=== PATIENT | female | born 1950 | race Caucasian/White ===

== ENCOUNTER 2017-01-12 12:05 | Outpatient (CLI) | payer OTHER | END 2017-01-12 12:06 | disposition home or self-care (01) | DX: Z12.31 Encounter for screening mammogram for malignant neoplasm of breast (principal) ==

== ENCOUNTER 2017-01-12 13:37 | Outpatient (CLI) | payer OTHER | END 2017-01-12 13:38 | disposition home or self-care (01) | DX: R05 Cough (principal) ==

== ENCOUNTER 2017-08-05 11:19 | Emergency (ER) | payer OTHER ==
[2017-08-05 11:53] LABS: BASOPHILS # (AUTO) 0.1 10^3/uL (0.0-0.1); BASOPHILS % (AUTO) 1.4 %; EOSINOPHILS # (AUTO) 0.2 10^3/uL (0.0-0.7); EOSINOPHILS % (AUTO) 3.2 %; HCT - HEMATOCRIT 43.5 % (37.0-47.0); HGB - HEMOGLOBIN 15.1 g/dL (12.0-16.0); LYMPHOCYTES # (AUTO) 2.8 10^3/uL (1.5-3.5); LYMPHOCYTES % (AUTO) 40.3 %; MEAN CORPUSCULAR HEMOGLOBIN 31.4 pg (27.0-31.0); MEAN CORPUSCULAR HGB CONC 34.6 g/dL (32.0-36.0); MEAN CORPUSCULAR VOLUME 90.6 fL (81.0-99.0); MEAN PLATELET VOLUME 7.4 fL (7.9-10.8); MONOCYTES # (AUTO) 0.5 10^3/uL (0.0-1.0); MONOCYTES % (AUTO) 7.5 %; NEUTROPHILS # (AUTO) 3.4 10^3/uL (1.5-6.6); NEUTROPHILS % (AUTO) 47.6 %; NUCLEATED RED BLOOD CELLS AUTO 0.1 /100WBC; RED CELL DISTRIBUTION WIDTH 13.2 % (12.0-15.0); UNCORRECTED WHITE BLOOD COUNT 7.1 x10^3/uL; WHITE BLOOD COUNT 7.1 x10^3/uL (4.8-10.8)
[2017-08-05 12:07] LABS: ALBUMIN/GLOBULIN RATIO 1.4 (1.0-2.2); BILIRUBIN,TOTAL 1.7 mg/dL (0.2-1.0); CALCIUM 9.9 mg/dL (8.5-10.3); CREATININE 0.7 mg/dL (0.4-1.0); POTASSIUM 3.8 mmol/L (3.5-5.0); TOTAL PROTEIN 7.4 g/dL (6.7-8.2)
--- NOTE | 2017-08-05 12:33 | XRAY Preliminary Report ---
Exam: XR CHEST 1 VIEW IMPRESSION: Grossly clear lungs. [facility] SITE ID: [id number]
--- NOTE | 2017-08-05 12:36 | XRAY Report ---
EXAM: CHEST RADIOGRAPHY EXAM DATE: 08/05/2017 11:49 AM. CLINICAL HISTORY: Chest pain. COMPARISON: 01/12/2017. TECHNIQUE: 1 view. FINDINGS: Lungs/Pleura: No focal opacities evident. No enlarged pleural effusion. No pneumothorax. Mediastinum: Within exam limitations, the cardiomediastinal contour is normal. Other: None. IMPRESSION: Grossly clear lungs. [facility] Referring Provider Line: [phone] SITE ID: [id number]
[2017-08-05 13:06] VITALS: BP 111/65
--- NOTE | 2017-08-05 13:26 | ED Physician Documentation ---
History of Present Illness - Stated complaint Stated Complaint: ELEVATED HEART RATE - Chief complaint Chief Complaint: Cardiac - History obtained from History obtained from: Patient (pt is here for evaluation of palpitations. pt states that she has had palpitations in the past but over the past week she has noticed them more. no chest pain, no shortness of breath, no dizziness, no headache, no passing out.) Review of Systems Constitutional: denies: Fever, Chills, Fatigue Nose: denies: Congestion, Sinus pressure / pain Throat: denies: Sore throat Cardiac: reports: Palpitations. denies: Chest pain / pressure, Pedal edema, Calf pain Respiratory: denies: Dyspnea, Cough, Hemoptysis GI: denies: Abdominal Pain, Nausea, Vomiting, Constipation, Diarrhea : denies: Dysuria, Frequency Skin: denies: Rash, Lesions Musculoskeletal: denies: Neck pain, Back pain, Joint swelling Neurologic: denies: Generalized weakness, Numbness, Difficulty speaking, Confused, Altered mental status, Headache, LOC PD PAST MEDICAL HISTORY - Past Medical History Past Medical History: Yes GI: GERD - Past Surgical History Past Surgical History: Yes Derm: Skin cancer surgery - Present Medications Home Medications: Ambulatory Orders Medication Instructions Recorded Confirmed Acyclovir 400 mg PO 08/05/17 Cetirizine [ZyrTEC] 10 mg PO DAILY 08/05/17 08/05/17 Docusate Sodium 250Mg Capsule 08/05/17 08/05/17 [Colace 250Mg Capsule] Melatonin 1 mg PO 08/05/17 raNITIdine [Zantac] 08/05/17 - Allergies Allergies/Adverse Reactions: Allergies Allergy/AdvReac Type Severity Reaction Status Date / Time latex Allergy Respiratory Verified 08/05/17 11:28 - Social History Does the pt smoke?: No Smoking Status: Never smoker Does the pt drink ETOH?: Yes ETOH Use: Wine Does the pt have substance abuse?: No - Immunizations Immunizations are current?: Yes - POLST Patient has POLST: No PD ED PE NORMAL - Vitals Vital signs reviewed: Yes - General General: Alert and oriented X 3, No acute distress, Well developed/nourished - HEENT HEENT: Atraumatic, Moist mucous membranes - Cardiac Cardiac: No murmur, No gallop, No rub. No: RRR (pt regular irregular) - Respiratory Respiratory: No respiratory distress, Clear bilaterally - Abdomen Abdomen: Normal bowel sounds, Soft, Non tender - Derm Derm: Normal color, Warm and dry, No rash - Extremities Extremities: No deformity, No edema - Neuro Neuro: Alert and oriented X 3, Normal speech Eye Opening: Spontaneous Motor: Obeys Commands Verbal: Oriented GCS Score: 15 - Psych Psych: Normal mood, Normal affect Results - Vitals Vitals: Vital Signs - 24 hr 08/05/17 08/05/17 08/05/17 11:28 11:46 13:05 Temperature 37.2 C Heart Rate 82 81 76 Respiratory 20 18 22 Rate Blood Pressure 141/83 H 144/67 H 111/65 Blood Pressure 147/109 H [Right] O2 Saturation 100 97 96 Oxygen O2 Source Room air - EKG (time done) 1129 Rate: Rate (enter#) Rhythm: NSR, Other (atrial trigeminy) [place]: Normal Ischemia: Normal ST segments Other comments: Other comments (pt with PAC's every 3rd beat ) - Labs Labs: Laboratory Tests 08/05/17 08/05/17 08/05/17 11:35 11:35 11:35 WBC 7.1 RBC 4.80 Hgb 15.1 Hct 43.5 MCV 90.6 MCH 31.4 H MCHC 34.6 RDW 13.2 Plt Count 329 MPV 7.4 L Neut # 3.4 Lymph # 2.8 [place] # 0.5 Eos # 0.2 Baso # 0.1 Absolute Nucleated RBC 0.01 Nucleated RBC % 0.1 Sodium 139 Potassium 3.8 Chloride 103 Carbon Dioxide 25 Anion Gap 11.0 BUN 15 Creatinine 0.7 Estimated GFR (MDRD) 84 L Glucose 96 Calcium 9.9 Total Bilirubin 1.7 H AST 20 ALT 17 Alkaline Phosphatase 42 Troponin I < 0.04 Total Protein 7.4 Albumin 4.3 Globulin 3.1 Albumin/Globulin Ratio 1.4 Lipase 21 L - Rads (name of study) CXR Radiology: Final report received PD MEDICAL DECISION MAKING - ED course Complexity details: d/w patient ED course: pt with frequent PAC's (trigeminy). CXR and labs unremarkable. pt is asymptomatic except for the sensation of the palpitations. We discussed this diagnosis. She as a folow up with her PCM tomorrow already scheduled. pt was given a copy of her ECG to take to her PCM. We discussed return precautions. She and her expressed understanding. Departure - Departure Disposition: 01 Home, Self Care Clinical Impression: Heart palpitations, Atrial complex, premature Condition: Good Instructions: Heart Palpitations Follow-Up: Sallie Lunsford MD [Primary Care Provider] - Comments: You are having premature trial contractions. keep your appointment with your primary care provider tomorrow and show your primary care provider the ECG that you had done today. Return to the ER for any new symptoms, chest pain, shortness of breath, dizziness or any other new or worsening symptoms.
== END 2017-08-05 13:53 | disposition home or self-care (01) ==
LOC: ED 11:19
DX: R00.2 Palpitations (principal); I49.1 Atrial premature depolarization
CPT/HCPCS: 71010; 80053; 83690; 84484; 85025; 93005; 99284

== ENCOUNTER 2018-06-14 15:55 | Outpatient (CLI) | payer OTHER ==
--- NOTE | 2018-06-17 08:37 | Mammography Report ---
Reason: SCREENING MAMMO Procedure Date: 06/14/2018 Accession Number: [id number] / [id number] Procedure: TIFFANY - Screening Mammo Dig Bilat CPT Code: FULL RESULT: EXAM: Screening Mammo Dig Bilat DATE: 06/14/2018 4:10 PM CLINICAL HISTORY: 68-year-old female with history of endometrial cancer as well as bilateral lumpectomy with benign pathology results. TECHNIQUE: Bilateral CC and MLO views were obtained. COMPARISON: 01/12/2017, 08/25/2015, 05/18/2014, 01/17/2013. FINDINGS: The breasts demonstrate scattered fibroglandular densities bilaterally. There is a developing asymmetry in the posterior upper left breast seen on the MLO view only which requires additional spot magnification view, ideally mammography and possibly ultrasound imaging for clarification. No other suspicious masses, clustered microcalcifications, or regions of architectural distortion are identified. IMPRESSION: Incomplete examination RECOMMENDATION: Additional evaluation as above. BIRADS CATEGORY 0: Incomplete examination STANDARD QUALIFYING STATEMENTS: 1. This examination was not reviewed with the aid of Computer-Aided Detection (CAD). 2. A negative or benign imaging report should not delay biopsy if clinically suspicious findings are present. Consider surgical consultation if warrented. More than 5% of cancers are not identified by imaging. 3. Dense breasts may obscure an underlying neoplasm. 4. This examination was reviewed without the aid of 3D breast imaging (tomosynthesis).
== END 2018-06-14 15:56 | disposition home or self-care (01) ==
LOC: DI 15:55
PROVIDERS: ATTEND Internal Medicine
DX: Z12.31 Encounter for screening mammogram for malignant neoplasm of breast (principal); Z85.89 Personal history of malignant neoplasm of other organs and systems
CPT/HCPCS: 77067

== ENCOUNTER 2018-07-05 14:04 | Outpatient (CLI) | payer OTHER ==
--- NOTE | 2018-07-05 15:41 | Mammography Report ---
Reason: ABN MAMMO - LEFT SPEC VIEWS Procedure Date: 07/05/2018 Accession Number: [id number] / [id number] Procedure: TIFFANY - Diag Special Views Dig LT CPT Code: FULL RESULT: EXAM: Diag Special Views Dig LT DATE: 07/05/2018 2:43 PM CLINICAL HISTORY: Follow-up abnormal mammogram 06/14/2018 TECHNIQUE: Left MLO spot compression, and left MLO and true lateral views with tomography. COMPARISON: 06/14/2018 FINDINGS: The density previously described in the posterior superior left breast on the MLO projection does not persist on additional views. IMPRESSION: Negative examination. RECOMMENDATION: Return to routine screening in 12 months. BIRADS CATEGORY: 1 Negative STANDARD QUALIFYING STATEMENTS: 1. This examination was reviewed with the aid of Computer-Aided Detection (CAD). 2. A negative or benign imaging report should not delay biopsy if clinically suspicious findings are present. Consider surgical consultation if warrented. More than 5% of cancers are not identified by imaging. 3. Dense breasts may obscure an underlying neoplasm.
== END 2018-07-05 14:05 | disposition home or self-care (01) ==
LOC: DI 14:04
PROVIDERS: ATTEND Internal Medicine
DX: R92.8 Other abnormal and inconclusive findings on diagnostic imaging of breast (principal)

== ENCOUNTER 2018-12-30 11:31 | Outpatient (CLI) | payer OTHER ==
--- NOTE | 2018-12-30 12:46 | XRAY Report ---
Reason: COUGH Procedure Date: 12/30/2018 Accession Number: [id number] / [id number] Procedure: XR - Chest 2 View X-Ray CPT Code: 16660 FULL RESULT: EXAM: CHEST RADIOGRAPHY EXAM DATE: 12/30/2018 11:54 AM. CLINICAL HISTORY: Cough for 6 days with low grade fever. COMPARISON: CHEST 1 VIEW 08/05/2017 11:48 AM. TECHNIQUE: 2 views. FINDINGS: Lungs/Pleura: No focal opacities evident. No pleural effusion. No pneumothorax. Normal volumes. Mediastinum: Heart and mediastinal contours are unremarkable. Other: None. IMPRESSION: No radiographic evidence of airspace disease. [facility]
== END 2018-12-30 11:32 | disposition home or self-care (01) ==
LOC: DI 11:31
PROVIDERS: ATTEND Internal Medicine
DX: R05 Cough (principal)
CPT/HCPCS: 71046

== ENCOUNTER 2019-01-27 15:25 | Outpatient (CLI) | payer OTHER | END 2019-01-27 15:26 | disposition home or self-care (01) | LOC: SC 15:25 | PROVIDERS: ATTEND Internal Medicine Pulmonary Disease | DX: R06.83 Snoring (principal); Z87.891 Personal history of nicotine dependence | CPT/HCPCS: 99203; 99212 ==

== ENCOUNTER 2019-02-16 20:29 | Outpatient (CLI) | payer OTHER | END 2019-02-16 20:30 | disposition home or self-care (01) | LOC: SC 20:29 | PROVIDERS: ATTEND Internal Medicine Pulmonary Disease | DX: G47.61 Periodic limb movement disorder (principal) | CPT/HCPCS: 95810 ==

== ENCOUNTER 2019-03-25 15:14 | Outpatient (CLI) | payer OTHER ==
--- NOTE | 2019-03-25 15:51 | CONSULTATION NOTE ---
Information from patient questionnaire entered by Katherine Roche. I have reviewed and concur with the information entered by Katherine Roche. This document represents the service I personally performed and the decisions made by me, Nik Cancino MD, [facility]. - History of Present Illness returned with her for follow up of the sleep study she had on 02/16/19. The polysomnography showed that the patient had poor sleep efficiency as the patient was awake almost throughout the first half of the night. Except for mild sleep fragmentation, the sleep architecture was relatively normal. Respiratory monitoring showed no significant sleep disordered breathing (AHI = 0.3) or hypoxia (robby oxygen saturation of 90%). The patient slept adequately in supine position (supine AHI = 0.0; non-supine = 0.31). Snore was infrequent and light in intensity. There was mild periodic leg movement of sleep con tributing to the sleep fragmentation. Cardiac rhythm was normal sinus rhythm with frequent premature atrial contractions, occasionally in trigeminy. No abnormal behavior (parasomnia) observed during the night. The patient was informed of these findings. I explained to her that except for the mild periodic leg movement of sleep, the sleep study was normal. Initial Lincoln Sleepiness Scale score: 2 Current Lincoln Sleepiness Scale score: 2 - Allergies/Medications Allergies latex Allergy (Verified 08/05/17 11:28) Respiratory Home Medications Acetaminophen [Tylenol Extra Strength] 500 mg PO PRN PRN 03/17/19 [History Confirmed 03/17/19] Acyclovir 400 mg PO DAILY 03/17/19 [History Confirmed 03/17/19] Albuterol Sulfate [Albuterol Sulfate Hfa] 2 puffs IH Q4HR PRN 03/17/19 [History Confirmed 03/17/19] Beclomethasone Dipropionate [Qvar Redihaler (80 mcg)] 1 puffs IH BID 03/17/19 [History Confirmed 03/17/19] Cetirizine [ZyrTEC] 10 mg PO DAILY 03/17/19 [History Confirmed 03/17/19] Melatonin 1 mg PO QPM 03/17/19 [History Confirmed 03/17/19] raNITIdine [Zantac] 150 mg PO BID 03/17/19 [History Confirmed 03/17/19] Allergies and home medications reviewed: Yes - Review of Systems Review of systems same as previous: Yes - Impression 1. Periodic leg movement of sleep, mild and without restless leg syndrome. No treatment is necessary. The cause of periodic leg movement of sleep is typically unknown. Few known causes are iron deficiency, renal failure, and selective serotonin reuptake inhibitors. Iron and ferritin levels are recom mended in addition to the routine blood work. - Plan 1. Primary care provider to check iron and ferritin levels on her routine blood work. 2. Return to the sleep clinic on as needed basis. This visit is time-based and I spent 15 minutes with the patient, and more than 50% of the time was spent counseling the patient.
== END 2019-03-25 15:15 | disposition home or self-care (01) ==
LOC: SC 15:14
PROVIDERS: ATTEND Internal Medicine Pulmonary Disease
DX: G47.61 Periodic limb movement disorder (principal)
CPT/HCPCS: 99212; 99213

== ENCOUNTER 2019-07-23 16:35 | Outpatient (CLI) | payer OTHER ==
--- NOTE | 2019-07-25 08:25 | Mammography Report ---
Reason: ENCNTR SCREEN MAMMOGRAM FOR MALIGNANT NEOPLASM OF Procedure Date: 07/23/2019 Accession Number: [id number] / [id number] Procedure: TIFFANY - Screening Mammo w/[place] CPT Code: Final Report FULL RESULT: EXAM: Screening Mammo w/[place] DATE: 07/23/2019 5:05 PM CLINICAL HISTORY: Routine screening. No reported personal or family history of breast cancer. History of bilateral benign breast biopsies. TECHNIQUE: (B) - Bilateral CC and MLO views were obtained. COMPARISON: 07/05/2018 through 01/08/2012. PARENCHYMAL PATTERN: (A) - The breasts demonstrate scattered fibroglandular densities bilaterally. FINDINGS: Bilateral breasts: There are no suspicious masses, calcifications, or areas of distortion. IMPRESSION: Negative examination. BI-RADS category 1. RECOMMENDATION: (ANNUAL) - Recommend routine annual screening mammography. BI-RADS CATEGORY: (1) - Negative. STANDARD QUALIFYING STATEMENTS: 1. This examination was not reviewed with the aid of Computer-Aided Detection (CAD). 2. A negative or benign imaging report should not preclude biopsy if clinically suspicious findings are present. 3. Dense breasts may obscure an underlying neoplasm. 4. This examination was reviewed with the aid of 3D breast imaging (tomosynthesis).
== END 2019-07-23 16:36 | disposition home or self-care (01) ==
LOC: DI 16:35
PROVIDERS: ATTEND Internal Medicine
DX: Z12.31 Encounter for screening mammogram for malignant neoplasm of breast (principal)
CPT/HCPCS: 77063; 77067

== ENCOUNTER 2020-10-06 09:13 | Outpatient (CLI) | payer BC ==
--- NOTE | 2020-10-07 09:00 | Mammography Report ---
BILATERAL DIGITAL SCREENING MAMMOGRAM 3D/2D: 10/06/2020 CLINICAL: Routine screening. Comparison is made to exams dated: 07/23/2019 mammogram, 07/05/2018 mammogram, 06/14/2018 mammogram, 01/12/2017 mammogram, 08/25/2015 mammogram, and 05/18/2014 mammogram - [facility]. The tissue of both breasts is predominantly fatty. No significant masses, calcifications, or other findings are seen in either breast. There has been no significant interval change. IMPRESSION: NEGATIVE There is no mammographic evidence of malignancy. A 1 year screening mammogram is recommended. This exam was interpreted at Station ID: [id number]. NOTE: For mammograms, a report in lay terms will be sent to the patient. Approximately 15% of breast malignancies will not be visualized mammographically. In the management of a palpable breast mass, a negative mammogram must not discourage biopsy of a clinically suspicious lesion. Electronically Signed By: Maverick Cortez M.D., jr/iveth:10/06/2020 11:18:02 ACR BI-RADS Category 1: Negative 3341F PARENCHYMAL PATTERN: (F) - The breast(s) demonstrate(s) diffuse fatty replacement. BI-RADS CATEGORY: (1) - 1 RECOMMENDATION: (ANNUAL) - Recommend routine annual screening mammography. [id number] 1 year screening LATERALITY: (B)
== END 2020-10-06 09:14 | disposition home or self-care (01) ==
LOC: DI.N 09:13
DX: Z12.31 Encounter for screening mammogram for malignant neoplasm of breast (principal)

== ENCOUNTER 2021-08-11 14:55 | Outpatient (CLI) | payer MEDICARE, OTHER ==
--- NOTE | 2021-08-11 16:06 | Ultrasound Report ---
PROCEDURE: Ext Limited Non Vascular INDICATIONS: RT UPPER ARM LUMP TECHNIQUE: Real-time scanning was performed of the right upper extremity, with image documentation. COMPARISON: None. FINDINGS: In the area of pain and fullness, no discrete sonographic abnormality identified. No focal mass or fluid collection is seen. No sonographic evidence of cellulitis. There is symmetric appearan ce sonographically to the left upper arm. IMPRESSION: Negative examination as above. If the patient's pain or other symptoms persist, consider further evaluation with MRI. Reviewed by: Antelmo Lopez MD on 08/11/2021 4:05 PM PST Approved by: Antelmo Lopez MD on 08/11/2021 4:05 PM PST Station ID: [id number]
== END 2021-08-11 14:56 | disposition home or self-care (01) ==
LOC: DI 14:55
PROVIDERS: ATTEND Internal Medicine
DX: M79.601 Pain in right arm (principal)

== ENCOUNTER 2021-09-21 09:14 | Day surgery (SDC) | payer MEDICARE, OTHER ==
[2021-09-21] MEDS ORDERED: LACTATED RINGERS 1,000 ML IV ONE ×2 (09:34→11:06)
[2021-09-21] MEDS ORDERED: PROPOFOL 500 MG/50 ML 500 MG/50 ML VIAL ONE (10:22)
[2021-09-21] MEDS ORDERED: MIDAZOLAM 2 MG/2 ML VIAL ONE (10:23)
[2021-09-21] MEDS ORDERED: fentaNYL 100 MCG/2 ML VIAL ONE (10:23)
--- NOTE | 2021-09-21 10:29 | ANESTHESIA ---
Pre-Anesthesia VS, & Labs - Diagnosis screening - Procedure colonoscopy Vital Signs: Temp Pulse Resp BP Pulse Ox 36.8 C 77 13 146/78 H 100 09/21/21 09:35 09/21/21 09:35 09/21/21 09:35 09/21/21 09:35 09/21/21 09:35 Height: 5 ft 3.5 in Weight (kg): 67 kg Body Mass Index: 25.7 BMI Classification: Overweight - NPO >8 hours - Is Patient ?: No - Lab Results Lab results reviewed: Yes Home Medications and Allergies Home Medications: Ambulatory Orders Famotidine [Acid-Pep] 20 mg PO DAILY 09/21/21 Acetaminophen [Tylenol Extra Strength] 500 mg PO PRN PRN 03/17/19 Acyclovir 400 mg PO DAILY 03/17/19 Albuterol Sulfate [Albuterol Sulfate Hfa] 2 puffs IH Q4HR PRN 03/17/19 Beclomethasone Dipropionate [Qvar Redihaler (80 mcg)] 1 puffs IH BID 03/17/19 Cetirizine [ZyrTEC] 10 mg PO DAILY 03/17/19 Melatonin 1 mg PO QPM 03/17/19 Famotidine [Acid-Pep] 20 mg PO DAILY 09/21/21 Allergies/Adverse Reactions: Allergies Allergy/AdvReac Type Severity Reaction Status Date / Time latex Allergy Respiratory Verified 08/05/17 11:28 Anes History & Medical History - Anesthetic History Anesthesia Complications: reports: No previous complications Family history of Anesthesia Complications: Denies Family history of Malignant Hyperthermia: Denies - Medical History Cardiovascular: reports: Arrhythmia (PVCs, not present today on exam) Pulmonary: reports: Asthma, Shortness of breath Gastrointestinal: reports: GERD Urinary: reports: None Musculoskeletal: reports: Osteoarthritis Endocrine/Autoimmune: reports: None Skin: reports: None Smoking Status: Never smoker - Surgical History Eyes Ears Nose Throat (EENT): reports: Cataracts Gynecologic: reports: Other Dermatologic: reports: Skin cancer surgery Exam General: Alert, Oriented x3, Cooperative Dental: WNL Mouth Openin Fingerbreadth Neck Mobility: Normal Mallampati classification: I Thyromental Distance: 4-6 cm Respiratory: Lungs clear, Normal breath sounds Cardiovascular: Regular rate Neurological: Normal speech Mental/Cognitive Status: Alert/Oriented X3, Normal for patient Cognitive Status: Within normal limits Plan Anesthesia Type: Total IV Consent for Procedure(s) Verified and Reviewed: Yes Code Status: Attempt Resuscitation ASA classification: 2-Mild systemic disease Is this case an emergency?: No
[2021-09-21 12:00] VITALS: BP 126/77
--- NOTE | 2021-09-21 12:18 | ANESTHESIA POST OP EVALUATION ---
Anesthesia Post Eval - Post Anesthesia Eval Vitals: Last Vital Signs Temp 36.4 C L 09/21/21 11:40 Pulse 68 09/21/21 11:40 Resp 17 09/21/21 11:40 BP 126/77 09/21/21 11:40 Pulse Ox 96 09/21/21 11:40 CV Function Including HR & BP: Stable Pain Control: Satisfactory Nausea & Vomiting: Negative Mental Status: Baseline Respiratory Status: Airway Patent Hydration Status: Satisfactory Anesthesia Complications: None
== END 2021-09-21 09:15 | disposition home or self-care (01) ==
LOC: SDS 09:14
PROVIDERS: ATTEND Surgery
DX: Z12.11 Encounter for screening for malignant neoplasm of colon (principal); K57.30 Diverticulosis of large intestine without perforation or abscess without bleeding; K64.8 Other hemorrhoids; Z87.891 Personal history of nicotine dependence; Z87.19 Personal history of other diseases of the digestive system
CPT/HCPCS: G0121; J7120

== ENCOUNTER 2021-11-21 10:48 | Outpatient (CLI) | payer MEDICARE, OTHER ==
--- NOTE | 2021-11-22 08:35 | Mammography Report ---
BILATERAL DIGITAL SCREENING MAMMOGRAM 3D/2D: 11/21/2021 CLINICAL: Routine screening. Comparison is made to exams dated: 10/06/2020 mammogram, 07/23/2019 mammogram, 07/05/2018 mammogram, 06/14/2018 mammogram, 01/12/2017 mammogram, and 08/25/2015 mammogram - [facility]. Th e tissue of both breasts is heterogeneously dense. This may lower the sensitivity of mammography. No significant masses, calcifications, or other findings are seen in either breast. There has been no significant interval change. IMPRESSION: NEGATIVE There is no mammographic evidence of malignancy. A 1 year screening mammogram is recommended. This exam was interpreted at Station ID: [id number]. NOTE: For mammograms, a report in lay terms will be sent to the patient. Approximately 15% of breast malignancies will not be visualized mammographically. In the management of a palpable breast mass, a negative mammogram must not discourage biopsy of a clinically suspicious lesion. Electronically Signed By: Dorothy mayfield/iveth:11/21/2021 14:55:30 ACR BI-RADS Category 1: Negative 3341F PARENCHYMAL PATTERN: (D) - The breast(s) demonstrate(s) heterogeneously dense fibroglandular avery carter. BI-RADS CATEGORY: (1) - 1 RECOMMENDATION: (ANNUAL) - Recommend routine annual screening mammography. [id number] 1 year screening LATERALITY: (B)
== END 2021-11-21 10:49 | disposition home or self-care (01) ==
LOC: DI.N 10:48
PROVIDERS: ATTEND Internal Medicine
DX: Z12.31 Encounter for screening mammogram for malignant neoplasm of breast (principal)

== ENCOUNTER 2022-03-10 08:00 | Outpatient (CLI) | payer MEDICARE, OTHER ==
[2022-03-10 16:12] LABS: BASOPHILS # (AUTO) 0.1 10^3/uL (0.0-0.1); BASOPHILS % (AUTO) 1.5 %; EOSINOPHILS # (AUTO) 0.2 10^3/uL (0.0-0.7); EOSINOPHILS % (AUTO) 3.1 %; HCT - HEMATOCRIT 45.2 % (37.0-47.0); HGB - HEMOGLOBIN 14.6 g/dL (12.0-16.0); LYMPHOCYTES # (AUTO) 2.3 10^3/uL (1.5-3.5); LYMPHOCYTES % (AUTO) 37.4 %; MEAN CORPUSCULAR HEMOGLOBIN 30.9 pg (27.0-31.0); MEAN CORPUSCULAR HGB CONC 32.3 g/dL (32.0-36.0); MEAN CORPUSCULAR VOLUME 95.8 fL (81.0-99.0); MEAN PLATELET VOLUME 10.9 fL (7.9-10.8); MONOCYTES # (AUTO) 0.5 10^3/uL (0.0-1.0); MONOCYTES % (AUTO) 8.5 %; NEUTROPHILS # (AUTO) 3.1 10^3/uL (1.5-6.6); NEUTROPHILS % (AUTO) 49.5 %; PLT - PLATELET COUNT 276 10^3/uL (130-450); RED BLOOD COUNT 4.72 10^6/uL (4.20-5.40); RED CELL DISTRIBUTION WIDTH 13.3 % (12.0-15.0); WHITE BLOOD COUNT 6.2 x10^3/uL (4.8-10.8)
[2022-03-10 16:26] LABS: ALBUMIN 4.1 g/dL (3.2-5.5); ALBUMIN/GLOBULIN RATIO 1.5 (1.0-2.2); ALKALINE PHOSPHATASE 42 IU/L (42-121); ALT ALANINE AMINOTRANSFERASE 21 IU/L (10-60); AST ASPARTATE AMINOTRANSFERASE 19 IU/L (10-42); BILIRUBIN,TOTAL 1.5 mg/dL (0.2-1.0); BUN - BLOOD UREA NITROGEN 12 mg/dL (6-20); CALCIUM 9.8 mg/dL (8.5-10.3); CARBON DIOXIDE - CO2 27 mmol/L (21-32); CHLORIDE 101 mmol/L (101-111); CHOL/HDL RATIO 2.2 (<4.4); CHOLESTEROL 236 mg/dL; CREATININE 0.6 mg/dL (0.4-1.0); GFR - MDRD 99 (>89); GLUCOSE 94 mg/dL (70-100); HDL CHOLESTEROL 109 mg/dL; LDL CHOLESTEROL,CALCULATED 110 mg/dL; POTASSIUM 4.1 mmol/L (3.5-5.0); SODIUM 136 mmol/L (135-145); TOTAL PROTEIN 6.8 g/dL (6.7-8.2); TRIGLYCERIDES 87 mg/dL; VLDL CHOLESTEROL 17 mg/dL
[2022-03-10 19:23] LABS: ESTIMATED AVERAGE GLUCOSE 100 mg/dL (70-100); HEMOGLOBIN A1c% 5.1 % (4.27-6.07)
== END 2022-03-10 23:59 | disposition home or self-care (01) ==
LOC: LAB.R 08:00
PROVIDERS: ATTEND Internal Medicine
DX: Z00.00 Encounter for general adult medical examination without abnormal findings (principal); C44.91 Basal cell carcinoma of skin, unspecified; Z79.899 Other long term (current) drug therapy; R73.01 Impaired fasting glucose; K21.9 Gastro-esophageal reflux disease without esophagitis; A60.9 Anogenital herpesviral infection, unspecified; M19.90 Unspecified osteoarthritis, unspecified site; M25.562 Pain in left knee; I49.40 Unspecified premature depolarization; J45.909 Unspecified asthma, uncomplicated; E55.9 Vitamin D deficiency, unspecified
CPT/HCPCS: 80053; 80061; 82306; 83036; 83721; 84443; 85025

== ENCOUNTER 2022-09-15 12:15 | Outpatient (CLI) | payer MEDICARE, OTHER ==
--- NOTE | 2022-09-15 18:02 | XRAY Report ---
PROCEDURE: Hip w/Pelvis 2-3V LT INDICATIONS: HIP PAIN TECHNIQUE: AP pelvis with lateral view(s) of the left hip(s). COMPARISON: X-ray left hip, 06/01/2016. FINDINGS: Bones: No fractures or dislocations. Pelvic ring appears intact. No suspicious bony lesions. Mode rate degenerative joint disease in the hips and sacroiliac joints bilaterally. There is moderate to s evere degenerative disc and facet disease at L4-L5 and L5-S1. Soft tissues: The visualized bowel gas pattern is normal. No suspicious soft tissue calcifications. IMPRESSION: 1. No acute osseous abnormalities. 2. 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 3. Aqvdpdob-xs-tustew degenerative disc and facet disease in the lower lumbar spine. Reviewed by: Ira Soto MD on 09/15/2022 6:00 PM PST Approved by: Ira Soto MD on 09/15/2022 6:00 PM PST Station ID: [id number]
== END 2022-09-15 12:16 | disposition home or self-care (01) ==
LOC: DI 12:15
PROVIDERS: ATTEND Internal Medicine
DX: M16.0 Bilateral primary osteoarthritis of hip (principal); M47.816 Spondylosis without myelopathy or radiculopathy, lumbar region; M51.36 Other intervertebral disc degeneration, lumbar region

== ENCOUNTER 2023-01-23 14:51 | Outpatient (CLI) | payer MEDICARE, OTHER ==
--- NOTE | 2023-01-23 17:31 | XRAY Report ---
PROCEDURE: Chest 2 View X-Ray INDICATIONS: ACUTE COUGH TECHNIQUE: 2 views of the chest were acquired. COMPARISON: 12/30/2018 FINDINGS: Surgical changes and devices: None. Lungs and pleura: No pleural effusions or pneumothorax. Lungs are clear. Mediastinum: Mediastinal contours appear normal. Heart size is normal. Bones and chest wall: No suspicious bony lesions. Overlying soft tissues appear unremarkable. IMPRESSION: No acute cardiopulmonary process. Reviewed by: Marquis Packer MD on 01/23/2023 5:30 PM PDT Approved by: Marquis Packer MD on 01/23/2023 5:30 PM PDT Station ID: [id number]
== END 2023-01-23 14:52 | disposition home or self-care (01) ==
LOC: DI 14:51
PROVIDERS: ATTEND Internal Medicine
DX: R05.1 Acute cough (principal)

== ENCOUNTER 2023-02-16 14:29 | Outpatient (CLI) | payer MEDICARE, OTHER ==
--- NOTE | 2023-02-19 09:31 | Mammography Report ---
BILATERAL DIGITAL SCREENING MAMMOGRAM 3D/2D: 02/16/2023 CLINICAL: Routine screening. Comparison is made to exams dated: 11/21/2021 mammogram, 10/06/2020 mammogram, 07/23/2019 mammogram, mammogram, 06/14/2018 mammogram, and 01/12/2017 mammogram - [facility]. Both breasts are heterogeneously dense, which may obscure small masses (category c / 51-75% glandular tissue). There is a benign intramammary node in the right breast. No significant masses, calcifications, or other findings are seen in either breast. There has been no significant interval change. IMPRESSION: BENIGN There is no mammographic evidence of malignancy. A 1 year screening mammogram is recommended. Based on the Tyrer Cuzick model (a risk assessment model) the patients lifetime risk is 5.6% and her 10 year risk is 3.8%. According to the ACR, ACS, and NCCN guidelines, an annual breast MRI exam yolanda g with mammogram is recommended if the patients lifetime risk is 20% or greater. This exam was interpreted at Station ID: [id number]. NOTE: For mammograms, a report in lay terms will be sent to the patient. Approximately 15% of breast malignancies will not be visualized mammographically. In the management of a palpable breast mass, a negative mammogram must not discourage biopsy of a clinically suspicious lesion. Electronically Signed By: Guero campos/iveth:02/16/2023 16:01:14 letter sent: No_Letter ACR BI-RADS Category 2: Benign Finding(s) 3342F PARENCHYMAL PATTERN: (D) - The breast(s) demonstrate(s) heterogeneously dense fibroglandular avery carter. BI-RADS CATEGORY: (2) - 2 Mammogram [id number] 1 year screening LATERALITY: (B)
== END 2023-02-16 14:30 | disposition home or self-care (01) ==
LOC: DI 14:29
DX: Z12.31 Encounter for screening mammogram for malignant neoplasm of breast (principal)

== ENCOUNTER 2023-05-17 10:43 | Outpatient (CLI) | payer MEDICARE, OTHER ==
--- NOTE | 2023-05-17 11:48 | DEXA Report ---
PROCEDURE: Dexa Spine and/or Hip INDICATIONS: POST MENOPAUSAL TECHNIQUE: Dual energy x-ray absorptiometry (DXA) was performed on a [employer] System. Regions measur ed are the AP Spine, femoral neck, and if needed forearm. COMPARISON: 06/01/2016 FINDINGS: Lumbar Spine: Bone Mineral Density 1.2 g/cm/cm,T score 0.4; normal bone density Left Femoral Neck: Bone Mineral Density 0.87 g/cm/cm, T score -1.1. Osteopenia Impression: By WHO criteria, this patient has normal lumbar spine bone density and osteopenia of the left femoral neck. Patients with diagnosis of osteoporosis or osteopenia should have regular bone mineral density assess ment. For those eligible for Medicare, routine testing is allowed once every 2 years. Testing frequ ency can be increased for patients who have rapidly progressing disease or for those who are receivin g medical therapy to restore bone mass. Reviewed by: Negrito Barnett MD on 05/17/2023 11:47 AM PDT Approved by: Negrito Barnett MD on 05/17/2023 11:47 AM PDT Station ID: [id number]
== END 2023-05-17 10:44 | disposition home or self-care (01) ==
LOC: DI 10:43
PROVIDERS: ATTEND Internal Medicine
DX: M85.88 Other specified disorders of bone density and structure, other site (principal); Z78.0 Asymptomatic menopausal state

== ENCOUNTER 2023-05-19 16:02 | Emergency (ER) | payer MEDICARE, OTHER ==
[2023-05-19 16:16] VITALS: BP 147/101; O2SAT 95
[2023-05-19] MEDS ORDERED: TETANUS/DIPHTHERIA/PERTUSSIS 0.5 ML SYRINGE IM ONE (16:36)
--- NOTE | 2023-05-19 16:45 | ED Physician Documentation ---
History of Present Illness - Stated complaint Stated Complaint: LIP LAC - Chief complaint Chief Complaint: Laceration - History obtained from History obtained from: Patient - History of Present Illness Timing: Today Pain level max: 2 Pain level now: 0 - Additonal information Additional information: 73-year-old female presents to the emergency department after ground-level fall today. She states that she was walking and fell on the gravel. She states that she sustained a laceration to her left lip and abrasions to her bilateral palms and bilateral knees. No head injury. No neck or back pain. Does not take any blood thinners. Nothing makes it better or worse. No active bleeding currently. No dental injury. Bite feels normal. No loss of consciousness. No nausea or vomiting. No seizure activity. Patient also complains of mild right shoulder pain, worse with movement, better with rest. Max 2 out of 10. No numbness or tingling. No deformity. 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 HEENT: Cataracts Derm: Skin cancer surgery - Present Medications Home Medications: Ambulatory Orders Medication Instructions Recorded Confirmed Acetaminophen [Tylenol Extra 500 mg PO PRN PRN 03/17/19 09/21/21 Strength] Acyclovir 400 mg PO DAILY 03/17/19 09/21/21 Albuterol Sulfate [Albuterol 2 puffs IH Q4HR PRN 03/17/19 09/21/21 Sulfate Hfa] Beclomethasone Dipropionate [Qvar 1 puffs IH BID 03/17/19 09/21/21 Redihaler (80 mcg)] Cetirizine [ZyrTEC] 10 mg PO DAILY 03/17/19 09/21/21 Melatonin 1 mg PO QPM 03/17/19 09/21/21 Famotidine [Acid-Pep] 20 mg PO DAILY 09/21/21 09/21/21 - Allergies Allergies/Adverse Reactions: Allergies Allergy/AdvReac Type Severity Reaction Status Date / Time latex Allergy Respiratory Verified 05/19/23 16:05 - Social History Does the pt smoke?: No Smoking Status: Never smoker Does the pt drink ETOH?: Yes Does the pt have substance abuse?: No - Immunizations Immunizations are current?: Yes - POLST Patient has POLST: No PD ED PE NORMAL - Vitals Vital signs reviewed: Yes - General General: Alert and oriented X 3, No acute distress - HEENT HEENT: Atraumatic, PERRL, EOMI, Ears normal, Moist mucous membranes, Other (0.2 cm laceration to the outer lower lip. Well approximated. No bleeding. No inner lip laceration. No other injuries. Normal dentition.) - Neck Neck: Supple, no meningeal sign - Cardiac Cardiac: RRR - Respiratory Respiratory: No respiratory distress, Clear bilaterally - Abdomen Abdomen: Soft, Non tender, Non distended - Derm Derm: Warm and dry - Extremities Extremities: No edema, No calf tenderness / cord, Other (B knee abrasion and B palm of hands abrasion. R shoulder - no deformity. FROM without pain. no derformity. normal RUE.) - Neuro Neuro: Alert and oriented X 3 - Psych Psych: Normal mood, Normal affect Results - Vitals Vitals: Vital Signs - 24 hr 05/19/23 16:05 Temperature 37.2 C Heart Rate 80 Respiratory 16 Rate Blood Pressure 147/101 H O2 Saturation 95 Oxygen O2 Source Room air Procedures - Laceration (location) L lower lip Length in cm: 0.2 Wound type: Linear, Superficial, Clean Neurovascular status: Sensory intact, Motor intact, Vascular intact Wound preparation: Irrigated copiously NS, Wound explored, To the base Skin layer closure: Dermabond Other: Patient tolerated well, No complications, Neurovascular intact, Tetanus booster given PD Medical Decision Making - ED course Complexity details: considered differential, d/w patient ED course: 73-year-old female status post a ground-level fall. No indication for imaging. Using her arms freely. GCS 15. No evidence of head injury. Did have a very small lip laceration that was repaired with Dermabond. Did not go through and through the lip. Normal dentition. Wounds were cleansed and bandaged. No other lacerations. Tdap given. Patient counseled regarding signs and symptoms for which I believe and urgent re-evaluation would be necessary. Patient with good understanding of and agreement to plan and is comfortable going home at this time This document was made in part using voice recognition software. While efforts are made to proofread this document, sound alike and grammatical errors may occur. Departure - Departure Disposition: 01 Home, Self Care Clinical Impression: Abrasion Lip laceration Qualifiers: Encounter type: initial encounter Qualified Code(s): S01.511A - Laceration without foreign body of lip, initial encounter Condition: Good Instructions: ED Laceration Facial Skin Glue Follow-Up: your,doctor in 1 week [Other] Comments: The Dermabond will dissolve on its own. You were given a tetanus shot today. Please follow-up with your doctor for further care. Please return if you worsen. Keep the wounds clean. Return for redness, swelling or drainage from the wounds. You can use Motrin or Tylenol for pain. Forms: PCP List Discharge Date/Time: 05/19/23 16:54
== END 2023-05-19 16:54 | disposition home or self-care (01) ==
LOC: ED 16:02
DX: S01.511A Laceration without foreign body of lip, initial encounter (principal); S80.212A Abrasion, left knee, initial encounter; S80.211A Abrasion, right knee, initial encounter; S60.512A Abrasion of left hand, initial encounter; S60.511A Abrasion of right hand, initial encounter; W18.30XA Fall on same level, unspecified, initial encounter; Z23 Encounter for immunization
CPT/HCPCS: 12011; 99282

== ENCOUNTER 2023-07-16 08:58 | Outpatient (CLI) | payer MEDICARE, OTHER ==
--- NOTE | 2023-07-16 16:26 | XRAY Report ---
PROCEDURE: Knee 4 View BILAT INDICATIONS: BILAT KNEE PAIN TECHNIQUE: 4 views of the knee(s) were acquired. COMPARISON: None. FINDINGS: Bones: No fractures or dislocations. No suspicious bony lesions. Tricompartmental joint space maximiliano rowing with associated osteophytosis. Soft tissues: Trace knee joint effusions. No suspicious soft tissue calcifications or masses. IMPRESSION: Mild to moderate tricompartmental osteoarthritis. Kellgren-Feliciano scale of osteoarthritis: 2. Reviewed by: David Lopez on 07/16/2023 4:24 PM PST Approved by: David Lopez on 07/16/2023 4:24 PM PST Station ID: [id number]
== END 2023-07-16 23:59 | disposition home or self-care (01) ==
LOC: DI.WOS 08:58
PROVIDERS: ATTEND Physician Assistant Surgical
DX: M17.0 Bilateral primary osteoarthritis of knee (principal)

== ENCOUNTER 2023-07-17 08:00 | Outpatient (CLI) | payer MEDICARE, OTHER ==
--- NOTE | 2023-07-17 10:10 | XRAY Report ---
PROCEDURE: Shoulder 3 View RT INDICATIONS: RIGHT SHOULDER PAIN TECHNIQUE: 4 views of the shoulder were acquired. COMPARISON: None. FINDINGS: Bones: No fractures or dislocations. No suspicious bony lesions. Visualized ribs appear intact. Soft tissues: No suspicious soft tissue calcifications. The visualized lungs are within normal limi ts. There is moderate AC joint degenerative change present. No significant glenohumeral joint degenerativ e change is seen. IMPRESSION: 1. No evidence for acute osseous abnormality. 2. Moderate AC joint degenerative change. Reviewed by: Tyree Silva MD on 07/17/2023 10:08 AM PST Approved by: Tyree Silva MD on 07/17/2023 10:08 AM PST Station ID: [id number]
== END 2023-07-17 23:59 | disposition home or self-care (01) ==
LOC: DI.WOS 08:00
PROVIDERS: ATTEND Physician Assistant Surgical
DX: M19.011 Primary osteoarthritis, right shoulder (principal)

== ENCOUNTER 2023-11-19 09:26 | Outpatient (CLI) | payer MEDICARE, OTHER | END 2023-11-19 09:27 | disposition home or self-care (01) | LOC: RT 09:26 | PROVIDERS: ATTEND Registered Nurse | DX: J45.909 Unspecified asthma, uncomplicated (principal) | CPT/HCPCS: 94060; 94727; 94729 ==

== ENCOUNTER 2023-12-28 14:38 | Outpatient (CLI) | payer MEDICARE, OTHER ==
--- NOTE | 2023-12-28 17:41 | CT Report ---
PROCEDURE: Chest WO INDICATIONS: COUGH TECHNIQUE: A CT scan of the chest was performed. Intravenous contrast media was not administered. Images were re corded and evaluated at appropriate window settings. Reformats: axial MIP of the chest, coronal and s agittal. For radiation dose reduction, the following was used: automated exposure control, adjustment of mA and/or kV according to patient size. COMPARISON: 2 views of the chest dated 01/23/2023. FINDINGS: Image quality: Diagnostic. Chest wall and lower neck: There is a midline soft tissue nodule which measures 2.0 x 2.2 cm and like ly extends from the thyroid isthmus (series 2/image 15). No axillary or supraclavicular adenopathy by size. Lungs and pleura: No consolidation. No pleural effusions. No pneumothorax. Scattered 3 and 4 mm pulm onary nodules are noted. No pulmonary nodules which require follow up visualized. Mediastinum: Heart size is normal. No pericardial effusion. No large vessel abnormality. No mediastin al adenopathy by size criteria. Bones: No aggressive osseous abnormality. Upper Abdomen: Unremarkable. IMPRESSION: 1. Pretracheal soft tissue nodule which likely originates from the thyroid gland. Thyroid ultrasound recommended to further characterize this finding. Neoplasm cannot be excluded. 2. No acute airspace opacities or suspicious pulmonary findings. Reviewed by: Dorothy Ojeda MD on 12/28/2023 5:39 PM PDT Approved by: Dorothy Ojeda MD on 12/28/2023 5:39 PM PDT Station ID: [id number]
== END 2023-12-28 14:39 | disposition home or self-care (01) ==
LOC: DI 14:38
PROVIDERS: ATTEND Registered Nurse
DX: R05.3 Chronic cough (principal); R93.89 Abnormal findings on diagnostic imaging of other specified body structures

== ENCOUNTER 2024-01-15 16:41 | Outpatient (CLI) | payer MEDICARE, OTHER ==
--- NOTE | 2024-01-21 12:13 | Ultrasound Report ---
PROCEDURE: Soft Tissue Head or Neck INDICATIONS: THYROID NODULE TECHNIQUE: Real-time scanning was performed of the thyroid gland, with image documentation. COMPARISON: CT chest dated 12/28/2023 FINDINGS: Right: Thyroid lobe measures 3.4 x 1.3 x 1.1 cm. Left: Thyroid lobe measures 3.3 x 1.2 x 1.2 cm Isthmus: 0.3 cm thick. Echotexture: Homogeneous. Nodule number: One Location: Midpole left thyroid lobe Size: 0.7 x 0.8 x 0.5 cm. Composition: Solid (2 points). Echogenicity: Hypoechoic (2 points). Shape: wider than tall (0 points). Margins: Smooth (0 points). Echogenic foci: None (0 points). Total points: 4 ACR TI-RADS category: TI-RADS 4: Moderately suspicious. Nodule number: Two Location: Left lower isthmus Size: 0.8 x 0.9 x 0.6 cm. Composition: Solid (2 points). Echogenicity: Isoechoic (1 point). Shape: wider than tall (0 points). Margins: Smooth (0 points). Echogenic foci: Peripheral (rim) calcification (2 points). Total points: 5 ACR TI-RADS category: TI-RADS 4: Moderately suspicious. There is a 2.3 x 1.3 x 2.4 cm hypoechoic and solid appearing structure inferior to left side of the i sthmus and show mild peripheral vascularity. IMPRESSION: 1. 2 subcentimeter moderately suspicious thyroid nodules as described above. No specific follow-up is indicated at this time. 2. 2.3 x 1.3 x 2.4 cm solid appearing hypoechoic structure with peripheral vascularity noted inferior and posterior to the thyroid gland and is of indeterminant nature. CT study shows this nodule to be in the superior anterior mediastinum and may represent thymoma, teratoma or lymphoma suggest clinical correlation. ACR TI-RADS definitions and recommendations: TI-RADS 1 (benign): 0 points. FNA not needed. TI-RADS 2 (not suspicious): 2 points. FNA not needed. TI-RADS 3 (mildly suspicious): 3 points. "FNA if 2.5 cm or larger, follow up if 1.5 cm or larger (at 1, 3, and 5 years). TI-RADS 4 (moderately suspicious): 4-6 points. "FNA if 1.5 cm or larger, follow up if 1 cm or larger (at 1, 2, 3, and 5 years). TI-RADS 5 (highly suspicious): 7 points or more. "FNA if 1 cm or larger, follow up if 0.5 cm or larger (every year for 5 years). Reviewed by: Jensen Rodriguez MD on 01/21/2024 12:12 PM PDT Approved by: Jensen Rodriguez MD on 01/21/2024 12:12 PM PDT Station ID: [id number]
== END 2024-01-15 16:42 | disposition home or self-care (01) ==
LOC: DI 16:41
PROVIDERS: ATTEND Internal Medicine
DX: E04.2 Nontoxic multinodular goiter (principal)

== ENCOUNTER 2024-04-24 14:28 | Outpatient (CLI) | payer MEDICARE, OTHER ==
--- NOTE | 2024-04-25 09:11 | Mammography Report ---
BILATERAL DIGITAL SCREENING MAMMOGRAM 3D/2D: 04/24/2024 CLINICAL: Routine screening. Comparison is made to exams dated: 02/16/2023 mammogram, 11/21/2021 mammogram, and 10/06/2020 mammogram - [facility]. Both breasts are heterogeneously dense, which may obscure small masses (category c / 51-75% glandular tissue). No significant masses, calcifications, or other findings are seen in either breast. There has been no significant interval change. IMPRESSION: NEGATIVE There is no mammographic evidence of malignancy. A 1 year screening mammogram is recommended. Based on the Tyrer Cuzick model (a risk assessment model) the patient's lifetime risk is 4.9% and her 10 year risk is 4.0%. According to the ACR, ACS, and NCCN guidelines, an annual breast MRI exam yolanda g with mammogram is recommended if the patient's lifetime risk is 20% or greater. This exam was interpreted at Station ID: [id number]. NOTE: For mammograms, a report in lay terms will be sent to the patient. Approximately 15% of breast malignancies will not be visualized mammographically. In the management of a palpable breast mass, a negative mammogram must not discourage biopsy of a clinically suspicious lesion. Electronically Signed By: Lisandro angel/iveth:04/24/2024 15:28:56 letter sent: No_Letter ACR BI-RADS Category 1: Negative 3341F PARENCHYMAL PATTERN: (D) - The breast(s) demonstrate(s) heterogeneously dense fibroglandular avery carter. BI-RADS CATEGORY: (1) - 1 RECOMMENDATION: (ANNUAL) - Recommend routine annual screening mammography. [id number] 1 year screening LATERALITY: (B)
== END 2024-04-24 14:29 | disposition home or self-care (01) ==
LOC: DI 14:28
PROVIDERS: ATTEND Internal Medicine
DX: Z12.31 Encounter for screening mammogram for malignant neoplasm of breast (principal); R92.333 Mammographic heterogeneous density, bilateral breasts